=== PATIENT | male | born 1945 | race Caucasian/White ===

== ENCOUNTER → 2020-07-11 | Day surgery (SDC) | payer OTHER ==
[~2020-07-11] VITALS: Ht 175.3 cm; Wt 113.4 kg
[~2020-07-11] MED LIST: ATEN-60 PO; CIPROFLOXACIN 400MG/200ML 200 ML IV ONE; HYDR1TAB97 PO; HYDROmorphone HCL 2 MG/ML VL IV PRN; LIDOCAINE 1% HCL (LOCAL ANESTH.) INJ 20ML MDV ONE; LISI20TA28 PO; METOCLOPRAMIDE HCL 5MG/ml INJ 2ml VIAL IV PRN; MIDAZOLAM HCL 1MG/1ML-2 ML VIAL ONE; MORPHINE SULFATE 4 MG/ML SYR/VIAL IV PRN; NEOMYCIN-BACITRACIN-POLYM 15GM TOP OINT TOP ONE; OMEP20TA PO; ONDANSETRON HCL 4 MG/2 ML VIAL ONE; PROPOFOL 10 MG/ML 20 ML IV ONE; SODIUM CHLORIDE LOCK 10 ML ONE; fentaNYL CITRATE 100 MCG/2 ML VL ONE
[2020-07-11 12:35] VITALS: BP 160/85
== END | disposition home or self-care (01) ==
LOC: SUR 08:33
PROVIDERS: ATTEND Urology
DX: N43.3 Hydrocele, unspecified (principal); I25.10 Atherosclerotic heart disease of native coronary artery without angina pectoris; I11.0 Hypertensive heart disease with heart failure; D64.9 Anemia, unspecified; K21.9 Gastro-esophageal reflux disease without esophagitis; Z20.822 Contact with and (suspected) exposure to COVID-19; Z98.890 Other specified postprocedural states; Z79.899 Other long term (current) drug therapy; Z87.442 Personal history of urinary calculi; Z68.36 Body mass index [BMI] 36.0-36.9, adult
CPT/HCPCS: 55041; 88305; J0744; J2250; J2405; J2704; J3010; U0003; 93005; J2001

== ENCOUNTER 2023-02-10 15:03 | Inpatient (IN) | payer OTHER ==
[~2023-02-10] VITALS: Ht 175.3 cm; Wt 100.0 kg
[~2023-02-10 15:03] MED LIST changes: -CIPROFLOXACIN 400MG/200ML 200 ML IV ONE; -HYDROmorphone HCL 2 MG/ML VL IV PRN; -LIDOCAINE 1% HCL (LOCAL ANESTH.) INJ 20ML MDV ONE; -LISI20TA28 PO; +LISI20TA56 PO; -METOCLOPRAMIDE HCL 5MG/ml INJ 2ml VIAL IV PRN; -MIDAZOLAM HCL 1MG/1ML-2 ML VIAL ONE; -MORPHINE SULFATE 4 MG/ML SYR/VIAL IV PRN; -NEOMYCIN-BACITRACIN-POLYM 15GM TOP OINT TOP ONE; -ONDANSETRON HCL 4 MG/2 ML VIAL ONE; -PROPOFOL 10 MG/ML 20 ML IV ONE; -SODIUM CHLORIDE LOCK 10 ML ONE; -fentaNYL CITRATE 100 MCG/2 ML VL ONE
[2023-02-10 15:28] LABS: Basophils # (auto) 0 10 ^3/uL (0-0.2); Basophils % (auto) 0.4 % (0.0-2.0); Eosinophils # (auto) 0.2 10 ^3/uL (0-0.8); Eosinophils % (auto) 2.3 % (0.0-7.0); Hematocrit 39.8 % (41.0-53.0); Hemoglobin 12.6 g/dL (13.5-17.5); Lymphocytes # (auto) 0.4 10 ^3/uL (0.4-5.4); Lymphocytes % (auto) 5.3 % (10.0-50.0); Mean Corpuscular Hemoglobin 19.7 pg (28.0-32.0); Mean Corpuscular Hgb Conc. 31.5 g/dL (32.0-36.0); Mean Corpuscular Volume 62.3 fL (80.0-100.0); Monocytes # (auto) 0.6 10 ^3/uL (0-1.3); Monocytes % (auto) 7.2 % (0.0-12.0); Neutrophils # (auto) 6.8 10 ^3/uL (1.6-8.6); Neutrophils % (auto) 84.8 % (37.0-80.0); Red Blood Cells 6.38 10^6/uL (4.5-5.90); Red Cell Distribution Width 17.6 % (11.8-14.3)
[2023-02-10 15:57] LABS: Alanine Aminotransferase 14 U/L (7-40); Albumin 4.2 g/dL (3.2-4.8); Alkaline Phosphatase 44 U/L (46-116); Anion Gap 5 (5-15); Aspartate Aminotransferase 12 U/L (13-40); BUN/Creatinine Ratio 12.7 (10.0-20.0); Blood Urea Nitrogen 10 mg/dL (9-23); Calcium 8.5 mg/dL (8.7-10.4); Carbon Dioxide 29 mmol/L (20-30); Chloride 107 mmol/L (98-107); Glucose 93 mg/dL (74-106); Potassium 4.2 mmol/L (3.5-5.1); Sodium 141 mmol/L (136-145)
[2023-02-10 15:58] LABS: Bilirubin, Total 0.5 mg/dL (0.2-1.0); Total Protein 6.3 g/dL (5.7-8.2)
[2023-02-10 16:44] LABS: Hypochromia Slight; Platelet Estimate Adequate
[2023-02-10] MEDS ORDERED: MORPHINE SULFATE INJ 2 MG/ml SYRG IV PRN (17:15)
[2023-02-10] MEDS ORDERED: NITROGLYCERIN 0.4 MG SL TAB SL PRN (17:15)
[2023-02-10] MEDS ORDERED: ONDANSETRON HCL 4 MG/2 ML VIAL IV PRN (17:15)
[2023-02-10] MEDS ORDERED: ALBUTEROL SULF 2.5 MG/0.5ML(0.5%) NEB SOLN NEB PRN (17:15)
[2023-02-10 18:52] LABS: Free T3 3.02 pg/mL (2.3-4.2)
[2023-02-10 18:53] LABS: Free T4 (Free Thyroxine) 0.86 ng/dL (0.89-1.76)
[2023-02-10 19:37] LABS: INR 1.21 (0.9-1.15); Partial Thromboplastin Time 27.3 SEC (24.5-34.5); Prothrombin Time 12.5 sec (9.3-11.8)
[2023-02-10 19:49] VITALS: BP 163/98; PULSE 80; RESP 18; TEMP 97.4; O2SAT 94; O2SAT 95
[2023-02-10] MEDS ORDERED: ACETAMINOPHEN 325 MG TAB PO PRN (21:30)
[2023-02-10] MEDS: HYDROcodone-ACET 5/325MG TAB PO PRN (21:50)
[2023-02-10] MEDS: FUROSEMIDE 20 MG/2 ML VIAL IV SCH (21:57)
[2023-02-10 23:17] VITALS: PULSE 65; RESP 20; O2SAT 94
[2023-02-10] MEDS: PRAVASTATIN SODIUM 20 MG TAB PO SCH (23:24)
[2023-02-10] MEDS: FAMOTIDINE 20 MG TAB PO SCH (23:24)
[2023-02-10] MEDS: METOPROLOL TARTRATE 25 MG TAB PO SCH (23:25)
[2023-02-10] MEDS: POTASSIUM CHL 10 Meq TABLET PO SCH (23:25)
[2023-02-10 23:56] VITALS: BP 165/74; PULSE 65; TEMP 98.1; O2SAT 95
[2023-02-11] VITALS (9 sets, daily range): BP systolic 108–152; BP diastolic 62–77; PULSE 67–85; RESP 18–20; TEMP 97.7–98.1; O2SAT 90–98
[2023-02-11] MEDS: FUROSEMIDE 20 MG/2 ML VIAL IV SCH ×2 (05:13→17:44)
[2023-02-11] MEDS: ASPirin-EC 81 mg tab PO SCH (08:23)
[2023-02-11] MEDS: FAMOTIDINE 20 MG TAB PO SCH ×2 (08:23→21:57)
[2023-02-11] MEDS: METOPROLOL TARTRATE 25 MG TAB PO SCH ×2 (08:24→21:57)
[2023-02-11] MEDS: POTASSIUM CHL 10 Meq TABLET PO SCH ×2 (08:24→21:57)
[2023-02-11] MEDS: ENOXAPARIN SOD 40 MG/0.4 ML SYRINGE SC SCH (08:24)
[2023-02-11] MEDS: PRAVASTATIN SODIUM 20 MG TAB PO SCH (21:57)
[2023-02-11 23:12] LABS: Urine Bacteria NONE SEEN /hpf (None Seen); Urine Blood Negative /uL (Negative); Urine Clarity Clear (Clear); Urine Color Colorless (Yellow); Urine Protein, UAD Negative (Negative); Urine Specific Gravity 1.011 (1.001-1.035); Urine Urobilinogen Normal (Negative); Urine WBC <1 /hpf (0 - 3); Urine pH 6.5 (5.0-8.0)
[2023-02-11 23:54] LABS: COVID19 ANTIGEN SOFIA FIA NEGATIVE (NEGATIVE)
[2023-02-12] VITALS (13 sets, daily range): BP systolic 117–158; BP diastolic 59–86; PULSE 58–92; RESP 14–20; TEMP 97.4–98; O2SAT 90–97
[2023-02-12] MEDS: FUROSEMIDE 20 MG/2 ML VIAL IV SCH ×2 (06:12→18:00)
[2023-02-12 07:16] LABS: Chloride 105 mmol/L (98-107); Potassium 4.2 mmol/L (3.5-5.1); Sodium 142 mmol/L (136-145)
[2023-02-12 07:17] LABS: Anion Gap 8 (5-15); Calcium 9.3 mg/dL (8.5-10.1); Carbon Dioxide 29 mmol/L (20-30)
[2023-02-12 07:22] LABS: BUN/Creatinine Ratio 14.6 (10.0-20.0); Blood Urea Nitrogen 13 mg/dL (9-23); Glucose 103 mg/dL (74-106)
[2023-02-12] MEDS ORDERED: ADENOSINE 84 MG in GIVE UN-DILUTED 0 ML IV ONE (07:45)
[2023-02-12] MEDS: METOPROLOL TARTRATE 25 MG TAB PO SCH ×2 (10:00→22:00)
[2023-02-12] MEDS: ENOXAPARIN SOD 40 MG/0.4 ML SYRINGE SC SCH (10:00)
[2023-02-12] MEDS: ASPirin-EC 81 mg tab PO SCH (10:00)
[2023-02-12] MEDS: POTASSIUM CHL 10 Meq TABLET PO SCH ×2 (10:00→21:59)
[2023-02-12] MEDS: FAMOTIDINE 20 MG TAB PO SCH ×2 (10:00→21:59)
[2023-02-12] MEDS ORDERED: fentaNYL CITRATE 100 MCG/2 ML VL ONE (15:39)
[2023-02-12] MEDS ORDERED: MIDAZOLAM HCL 2MG/2ML 2ml VIAL (1mg/ml) ONE (15:40)
[2023-02-12] MEDS ORDERED: LIDOCAINE 2%HCL (LOCAL ANESTH.) INJ 20ML MDV ONE (15:40)
[2023-02-12] MEDS ORDERED: IODIXANOL 320MG/ML 100ML BTL IV ONE (15:59)
[2023-02-12] MEDS ORDERED: hydrALAZINE HCL 20 MG/ML VL ONE (16:22)
[2023-02-12 18:47] LABS: Basophils # (auto) 0 10 ^3/uL (0-0.2); Basophils % (auto) 0.3 % (0.0-2.0); Eosinophils # (auto) 0.1 10 ^3/uL (0-0.8); Eosinophils % (auto) 1.2 % (0.0-7.0); Lymphocytes # (auto) 0.4 10 ^3/uL (0.4-5.4); Lymphocytes % (auto) 5.7 % (10.0-50.0); Neutrophils # (auto) 6.3 10 ^3/uL (1.6-8.6); White Blood Cell 7.3 10^3/uL (4.4-10.8)
[2023-02-12 18:48] LABS: Hematocrit 45.4 % (41.0-53.0); Hemoglobin 14.3 g/dL (13.5-17.5); Mean Corpuscular Hemoglobin 19.6 pg (28.0-32.0); Mean Corpuscular Hgb Conc. 31.4 g/dL (32.0-36.0); Mean Corpuscular Volume 62.4 fL (80.0-100.0); Monocytes # (auto) 0.5 10 ^3/uL (0-1.3); Monocytes % (auto) 6.6 % (0.0-12.0); Neutrophils % (auto) 86.2 % (37.0-80.0); Nucleated Red Blood Cells % 0.2 %; Red Blood Cells 7.27 10^6/uL (4.5-5.90); Red Cell Distribution Width 17.3 % (11.8-14.3)
[2023-02-12 19:06] LABS: Alanine Aminotransferase 13 U/L (7-40); Albumin 4.5 g/dL (3.2-4.8); Alkaline Phosphatase 47 U/L (46-116); Anion Gap 8 (5-15); Aspartate Aminotransferase 18 U/L (13-40); BUN/Creatinine Ratio 12.5 (10.0-20.0); Bilirubin, Total 0.9 mg/dL (0.2-1.0); Blood Urea Nitrogen 10 mg/dL (9-23); Calcium 9.1 mg/dL (8.7-10.4); Carbon Dioxide 28 mmol/L (20-30); Chloride 105 mmol/L (98-107); Glucose 94 mg/dL (74-106); Potassium 3.9 mmol/L (3.5-5.1); Sodium 141 mmol/L (136-145); Total Protein 6.9 g/dL (5.7-8.2)
[2023-02-12 19:38] LABS: Body Fluid pH 8
[2023-02-12 20:05] LABS: Body Fluid Polymorphonuclear 12 % (0-25); Body Fluid Red Blood Cells 350 CUMM (0-2000); Body Fluid White Blood Cells 693 CUMM (0-200)
[2023-02-12] MEDS: HYDROcodone-ACET 5/325MG TAB PO PRN (20:17)
[2023-02-12] MEDS: PRAVASTATIN SODIUM 20 MG TAB PO SCH (21:59)
[2023-02-13] MEDS: FUROSEMIDE 20 MG/2 ML VIAL IV SCH (05:45)
[2023-02-13] MEDS: HYDROcodone-ACET 5/325MG TAB PO PRN (05:46)
[2023-02-13 05:48] VITALS: BP 143/74; PULSE 89; RESP 16; TEMP 97.8; O2SAT 91
[2023-02-13 06:15] LABS: Basophils # (auto) 0 10 ^3/uL (0-0.2); Eosinophils # (auto) 0.1 10 ^3/uL (0-0.8); Hemoglobin 13.4 g/dL (13.5-17.5)
[2023-02-13 06:17] LABS: Basophils % (auto) 0.3 % (0.0-2.0); Eosinophils % (auto) 1.2 % (0.0-7.0); Hematocrit 42.2 % (41.0-53.0); Lymphocytes # (auto) 0.4 10 ^3/uL (0.4-5.4); Lymphocytes % (auto) 3.8 % (10.0-50.0); Mean Corpuscular Hemoglobin 19.8 pg (28.0-32.0); Mean Corpuscular Hgb Conc. 31.7 g/dL (32.0-36.0); Mean Corpuscular Volume 62.5 fL (80.0-100.0); Monocytes # (auto) 0.6 10 ^3/uL (0-1.3); Neutrophils # (auto) 8.2 10 ^3/uL (1.6-8.6); Neutrophils % (auto) 87.7 % (37.0-80.0); Red Blood Cells 6.76 10^6/uL (4.5-5.90); Red Cell Distribution Width 17.5 % (11.8-14.3); White Blood Cell 9.3 10^3/uL (4.4-10.8)
[2023-02-13 06:31] LABS: Chloride 104 mmol/L (98-107); Sodium 140 mmol/L (136-145)
[2023-02-13 06:32] LABS: Anion Gap 8 (5-15); Calcium 8.8 mg/dL (8.7-10.4); Carbon Dioxide 28 mmol/L (20-30)
[2023-02-13 06:38] LABS: BUN/Creatinine Ratio 19.5 (10.0-20.0); Blood Urea Nitrogen 16 mg/dL (9-23); Glucose 103 mg/dL (74-106)
[2023-02-13 07:42] VITALS: PULSE 91
[2023-02-13 08:34] LABS: Ovalocytes MODERATE
[2023-02-13 08:35] LABS: Platelet Estimate Adequate
[2023-02-13 08:37] LABS: Hypochromia Marked
[2023-02-13 09:00] VITALS: BP 92/50; PULSE 108; RESP 18; TEMP 98.6; O2SAT 92
[2023-02-13] MEDS: POTASSIUM CHL 10 Meq TABLET PO SCH (09:53)
[2023-02-13] MEDS: ASPirin-EC 81 mg tab PO SCH (09:53)
[2023-02-13] MEDS: METOPROLOL TARTRATE 25 MG TAB PO SCH (09:54)
[2023-02-13] MEDS: ENOXAPARIN SOD 40 MG/0.4 ML SYRINGE SC SCH (09:54)
[2023-02-13] MEDS: FAMOTIDINE 20 MG TAB PO SCH (09:54)
[2023-02-13] MEDS ORDERED: ATEN-60 PO (12:21)
[2023-02-13 13:00] VITALS: BP 94/56; PULSE 93; RESP 20; TEMP 97.7; O2SAT 92
[2023-02-13 15:16] VITALS: BP 94/56; PULSE 93; RESP 20; TEMP 97.7; O2SAT 92
[2023-02-16 13:06] LABS: Glucose, Body Fluid 45 mg/dL (.); LD, Body Fluid 369 IU/L (.)
[2023-02-18 17:06] LABS: Aspergillus flavus Negative (Neg:<1:1); Aspergillus fumigatus Negative (Neg:<1:1); Aspergillus niger Negative (Neg:<1:1); Blastomyces Antibody DID Negative (Neg:<1:1)
== END 2023-02-13 15:54 | disposition home or self-care (01) | DRG 314 ==
LOC: ER 15:03 → TELE 17:15 → TELE-CENTR 23:53
PROVIDERS: ADMIT Hospitalist; ATTEND Hospitalist
PROC: 0W9D3ZZ Drainage of Pericardial Cavity, Percutaneous Approach (ICD-10-PCS; principal; 2023-02-12)
DX: I31.39 Other pericardial effusion (noninflammatory) (principal); I50.33 Acute on chronic diastolic (congestive) heart failure; I11.0 Hypertensive heart disease with heart failure; E78.5 Hyperlipidemia, unspecified; Z83.3 Family history of diabetes mellitus; Z20.822 Contact with and (suspected) exposure to COVID-19; D56.1 Beta thalassemia
CPT/HCPCS: 33016; 36415; 71046; 78452; 80048; 80053; 81001; 83880; 83986; 84439; 84443; 84481; 84484; 85025; 85379; 85610; 85730; 86606; 86612; 86635; 86698; 87205; 87426; 89051; 93005; 93017; 93306; 99152; 99291; G0378; J0153; J2250; Q9967